=== PATIENT | female | born 1935 | race Caucasian/White ===

== ENCOUNTER 2016-10-11 12:14 | Day surgery (SDC) | payer MEDICARE, BC ==
[2016-10-11 12:31] VITALS: RESP 14; TEMP 97.6
[2016-10-11 12:34] LABS: Mean Platelet Volume 8.5
[2016-10-11 12:40] LABS: INR 1.2 (<1.1)
[2016-10-11 14:40] VITALS: BP 107/67; PULSE 77
--- NOTE | 2016-10-11 17:03 | US ---
EXAMINATION TYPE: US paracentesis abd w/image DATE OF EXAM: 10/11/2016 2:42 PM COMPARISON: NONE HISTORY: Ascites. PROCEDURE: Maximal barrier technique was utilized. The skin overlying a suitable pocket of fluid was localized with ultrasound and the overlying skin was prepped and draped. Ultrasound was utilized with sterile technique. Lidocaine was used for local anesthesia and a skin panchito made with a scalpel. Catheter was advanced under direct ultrasound guidance into a suitable pocket of fluid and approximately 6.5 liter s of serous fluid were removed. Catheter was withdrawn and hemostasis achieved. There is no immedia te complication; the patient is discharged in stable condition. IMPRESSION: STATUS POST ULTRASOUND GUIDED PARACENTESIS FOR PALLIATION OF ASCITES. THIS PROCEDURE WA S PERFORMED BY THE UNDERSIGNED.
== END 2016-10-11 14:55 | disposition hospice, home (50) ==
LOC: RADPROMAIN 12:14
PROVIDERS: ATTEND Internal Medicine Hematology & Oncology
DX: R18.8 Other ascites (principal)
CPT/HCPCS: 49083; 85049; 85610

== ENCOUNTER 2016-10-25 08:49 | Day surgery (SDC) | payer MEDICARE, BC ==
[2016-10-25 09:16] VITALS: RESP 20; TEMP 98.1
[2016-10-25 09:23] LABS: Mean Platelet Volume 8.2
[2016-10-25 09:29] LABS: INR 1.2 (<1.1); Prothrombin Time 11.8 sec (9.0-12.0)
[2016-10-25 10:54] VITALS: BP 112/61; PULSE 86
--- NOTE | 2016-10-25 11:04 | US ---
EXAMINATION TYPE: US paracentesis abd w/image DATE OF EXAM: 10/25/2016 10:57 AM COMPARISON: NONE HISTORY: Ascites. PROCEDURE: Maximal barrier technique was utilized. The skin overlying a suitable pocket of fluid was localized with ultrasound and the overlying skin was prepped and draped. Ultrasound was utilized with sterile technique. Lidocaine was used for local anesthesia and a skin panchito made with a scalpel. Catheter was advanced under direct ultrasound guidance into a suitable pocket of fluid and approximately 5.3 liter s of serous fluid were removed. Catheter was withdrawn and hemostasis achieved. There is no immedia te complication; the patient is discharged in stable condition. IMPRESSION: STATUS POST ULTRASOUND GUIDED PARACENTESIS FOR PALLIATION OF ASCITES. THIS PROCEDURE WA S PERFORMED BY THE UNDERSIGNED.
== END 2016-10-25 11:10 | disposition hospice, inpatient (51) ==
LOC: RADPROMAIN 08:49
PROVIDERS: ATTEND Internal Medicine Hematology & Oncology
DX: R18.8 Other ascites (principal)
CPT/HCPCS: 36415; 49083; 85049; 85610

== ENCOUNTER 2016-11-06 08:50 | Day surgery (SDC) | payer MEDICARE, BC ==
[2016-11-06 09:35] LABS: Mean Platelet Volume 8.1
[2016-11-06 09:38] LABS: INR 1.2 (<1.1); Prothrombin Time 12.2 sec (9.0-12.0)
[2016-11-06 09:41] VITALS: TEMP 97.7
[2016-11-06 11:45] VITALS: BP 116/80; PULSE 78; RESP 18
--- NOTE | 2016-11-06 12:57 | US ---
EXAMINATION TYPE: US paracentesis abd w/image DATE OF EXAM: 11/06/2016 10:56 AM COMPARISON: NONE HISTORY: Ascites. PROCEDURE: Maximal barrier technique was utilized. The skin overlying a suitable pocket of fluid was localized with ultrasound and the overlying skin was prepped and draped. Ultrasound was utilized with sterile technique. Lidocaine was used for local anesthesia and a skin panchito made with a scalpel. Catheter was advanced under direct ultrasound guidance into a suitable pocket of fluid and approximately 4.2 liter s of serous fluid were removed. Catheter was withdrawn and hemostasis achieved. There is no immedia te complication; the patient is discharged in stable condition. IMPRESSION: STATUS POST ULTRASOUND GUIDED PARACENTESIS FOR PALLIATION OF ASCITES. THIS PROCEDURE WA S PERFORMED BY THE UNDERSIGNED.
== END 2016-11-06 11:30 | disposition home or self-care (01) ==
LOC: RADPROMAIN 08:50
PROVIDERS: ATTEND Internal Medicine Hematology & Oncology
DX: R18.8 Other ascites (principal)
CPT/HCPCS: 36415; 49083; 85049; 85610

== ENCOUNTER 2016-11-27 12:16 | Day surgery (SDC) | payer MEDICARE, BC ==
[2016-11-27 12:59] LABS: Mean Platelet Volume 8.2
[2016-11-27 13:10] LABS: INR 1.4 (<1.1); Prothrombin Time 13.7 sec (9.0-12.0)
[2016-11-27 13:18] VITALS: RESP 14; TEMP 98.1
[2016-11-27 14:04] VITALS: BP 91/62; PULSE 83
--- NOTE | 2016-11-27 15:11 | US ---
EXAMINATION TYPE: US paracentesis abd w/image DATE OF EXAM: 11/27/2016 2:20 PM COMPARISON: NONE HISTORY: Ascites. PROCEDURE: Maximal barrier technique was utilized. The skin overlying a suitable pocket of fluid was localized with ultrasound and the overlying skin was prepped and draped. Ultrasound was utilized with sterile technique. Lidocaine was used for local anesthesia and a skin panchito made with a scalpel. Catheter was advanced under direct ultrasound guidance into a suitable pocket of fluid and approximately 1.25 lite rs of serous fluid were removed. Catheter was withdrawn and hemostasis achieved. There is no immedi ate complication; the patient is discharged in stable condition. IMPRESSION: STATUS POST ULTRASOUND GUIDED PARACENTESIS FOR PALLIATION OF ASCITES. THIS PROCEDURE WA S PERFORMED BY THE UNDERSIGNED.
== END 2016-11-27 14:23 | disposition hospice, inpatient (51) ==
LOC: RADPROMAIN 12:16
PROVIDERS: ATTEND Internal Medicine Hematology & Oncology
DX: R18.8 Other ascites (principal)
CPT/HCPCS: 49083; 85049; 85610